=== PATIENT | female | born 1965 | race Hispanic/Latino ===

== ENCOUNTER 2021-09-07 13:36 | Emergency (ER) | payer MEDICAID ==
[2021-09-07] MEDS ORDERED: MAG/ALUM/SIMETH 30 ML UDCUP ONE (13:46)
[2021-09-07] MEDS ORDERED: LIDOCAINE HCL 2% VISCOUS 15 ML UDCUP ONE (13:46)
[2021-09-07] MEDS ORDERED: 0.9%NACL 1000ML 1,000 ML IV ONE (14:00)
[2021-09-07 14:03] LABS: BASOPHILS % (AUTO) 0.5 % (0.0-5.0); EOSINOPHILS % (AUTO) 3.7 % (0.0-8.0); LYMPHOCYTES % (AUTO) 21.3 % (21.0-51.0); MEAN CORPUSCULAR HEMOGLOBIN 30.3 pg (27.0-33.0); MEAN CORPUSCULAR HGB CONC 32.8 g/dL (32.0-36.0); MEAN CORPUSCULAR VOLUME 92.4 fL (79-99); PLATELET COUNT (AUTO) 236 K/uL (130-400); RED BLOOD CELL COUNT(AUTO) 4.33 MIL/uL (4.00-5.50); RED CELL DISTRIBUTION WIDTH 12.3 % (11.0-15.5); WHITE BLOOD COUNT (AUTO) 5.9 K/uL (4.8-10.8)
[2021-09-07 14:13] LABS: CARBON DIOXIDE 27 mmol/L (21-32); CHLORIDE 107 mmol/L (101-111); CREATININE 0.7 mg/dL (0.5-1.5); GLOMERULAR FILTR. RATE CALC 93 mL/min (>60); GLUCOSE,RANDOM 110 mg/dL (70-105); POTASSIUM 3.4 mmol/L (3.5-5.1); SODIUM SERUM 142 mmol/L (136-145); UREA NITROGEN, BLOOD 7 mg/dL (7-18)
[2021-09-07 14:17] LABS: ALANINE AMINOTRANSFERASE 23 U/L (12-78); ALBUMIN 3.1 g/dL (3.5-5.0); ALCOHOL, BLOOD < 3 mg/dL (0-10); ASPARTATE AMINOTRANSFERASE 16 U/L (10-37); BILIRUBIN,TOTAL 0.3 mg/dL (0.2-1.0); CREATINE KINASE, TOTAL 51 U/L (21-232); TOTAL PROTEIN, SERUM 6.7 g/dL (6.0-8.3)
[2021-09-07 14:17] LABS: AMPHET/METH SCREEN,URINE NEGATIVE (NEGATIVE); BARBITURATE SCREEN, URINE NEGATIVE (NEGATIVE); BENZODIAZEPINES SCREEN,URINE NEGATIVE (NEGATIVE); CANNABINOID SCREEN,URINE NEGATIVE (NEGATIVE); COCAINE SCREEN,URINE NEGATIVE (NEGATIVE); OPIATE SCREEN,URINE NEGATIVE (NEGATIVE); PHENCYCLIDINE SCREEN,URINE NEGATIVE (NEGATIVE)
[2021-09-07 14:20] LABS: HCG,QUAL RESULT NEGATIVE (NEGATIVE)
[2021-09-07 15:11] LABS: ACETAMINOPHEN < 1 mcg/mL (10-30); SALICYLATE < 2.8 mg/dL (2.8-20.0)
[2021-09-08] MEDS ORDERED: ZIPRASIDONE MESYLATE 20 MG/VIAL IM ONE (04:31)
[2021-09-08 10:39] VITALS: BP 129/71
== END 2021-09-08 12:09 | disposition short-term general hospital (02) ==
LOC: EDH 13:36
DX: T50.992A Poisoning by other drugs, medicaments and biological substances, intentional self-harm, initial encounter (principal); R45.851 Suicidal ideations; F20.9 Schizophrenia, unspecified; F31.9 Bipolar disorder, unspecified; I10 Essential (primary) hypertension; Z20.822 Contact with and (suspected) exposure to COVID-19; Y92.89 Other specified places as the place of occurrence of the external cause
CPT/HCPCS: 36415; 80053; 80305; 81025; 82550; 85025; 87635; 96360; 96361; 96372; 99285; C9803; G0481; J3486; J7030

== ENCOUNTER 2024-08-23 13:14 | Emergency (ER) | payer MEDICARE ==
[~2024-08-23] VITALS: Ht 160 cm; Wt 65.8 kg
--- NOTE | 2024-08-23 13:41 | EKG ---
[facility] Test Date: 2024-08-23 Test Time: 13:34:21 Pat Name: BRISA BEDOLLA Department: ED Room: Gender: F Out Patient Therapist: [id number] Requested By: DAVIDE REID Order Number: [id number] Reading MD: Gela Castañeda Measurements Intervals [place] Rate: 64 P: 52 CO: 171 QRS: 22 QRSD: 93 T: 37 QT: 429 QTc: 443 Interpretive Statements Sinus rhythm Probable left atrial enlargement No previous ECG available for comparison Electronically Signed On 08-24-2024 15:37:22 KNOBBER by Gela Castañeda Please click the below link to view image of tracing.
--- NOTE | 2024-08-23 13:49 | ERN ---
General Chief Complaint: Halluciations Stated Complaint: HALLUCINATIONS Time Seen by MD: 13:21 History of Present Illness Initial Comments 58-year-old male history of schizophrenia brought in from home by EMS for altered mentation. According to EMS, the family reports that the patient lives on her own. She has a history of schizophrenia. The sister checked on her today and reports that she was acting more paranoid in his possibly manic. She reports that the patient was likely not taking your medications. The patient denies any suicidal or homicidal ideation. She denies any trauma. She denies any drug or alcohol abuse. She does report that she was hearing voices more than usual and is very paranoid. She reports that she would like psychiatric evaluation. Allergies: Coded Allergies: No Known Drug Allergies (Verified Allergy, Unknown, 09/07/21) Past Medical History Past Medical History: Anxiety, Bipolar, Depression, Hypertension Medical History Other: SCHIZOPHRENIA Past Surgical History: Unknown ROS Dictation CONSTITUTIONAL: No chills, no fever, no weakness, no diaphoresis, no malaise. HEAD/FACE: No signs of trauma. EENT: No eye pain, no blurred vision, no tearing, no double vision, no ear pain, no ear discharge, no nose pain, no nasal congestion, no throat pain, no throat swelling, no mouth pain. RESPIRATORY: No cough, no orthopnea, no SOB, no stridor, no wheezing. CARDIOVASCULAR: No chest pain, no edema, no palpitations, no syncope. GASTROINTESTINAL/ABDOMINAL: No abdominal pain, no constipation, no diarrhea, no nausea, no vomiting. GENITOURINARY: No abnormal discharge, no dysuria, no frequent urination, no hematuria. No complaints of pain in the genitals. MUSCULOSKELETAL: No back pain, no gout, no joint pain, no joint swelling, no muscle pain, no muscle stiffness, no neck pain. INTEGUMENTARY: No change in color, no change in hair/nails, no dryness, no lesion, no lumps, no rash. NEUROLOGICAL/PSYCH: No anxiety, not depressed, no emotional problem, no headache, no numbness, no pre-existing deficit, no history of seizures, no tremors, no weakness. HEMATOLOGIC/LYMPHATIC: Not anemic, no history of blood clots, no apparent bleeding, no bruising, glands not swollen. All Systems Negative, Except as Noted. Physical Exam Physical Exam Dictation VITAL SIGNS: Reviewed. GENERAL APPEARANCE: Alert, oriented x3, no acute distress HEAD AND FACE: Non-traumatic. EYES: PERRL, pink conjunctivas, eyelid no trauma, anterior chamber clear. EARS: Pinnas intact and no signs of trauma or erythema. Ear canals clear and no discharge. TMs no erythema. NOSE: No discharge, no bleeding. OROPHARYNX: Mouth normal, teeth no caries, tongue pink. Pharynx clear, no erythema. Tonsils no exudates, no abscesses noted. Mucous membrane moist. NECK: Supple, non-tender, no thyromegaly, no masses, no JVD, no bruits. BREAST: Deferred. CHEST: No tenderness, no crepitus, no paradoxical movement, no retractions. LUNGS: Clear, well-ventilated, symmetric, no rales, no wheezing, no rhonchi, no stridor, good breath sounds bilaterally. HEART: Regular rate, regular rhythm, no murmur, no gallops. VASCULAR: No peripheral edema. ABDOMEN: Soft, positive bowel sounds, nondistended, no guarding, nontender, no rebound, no masses no hepatomegaly, no splenomegaly, no Hayes's sign, no hernias. RECTAL: Deferred. GENITAL: Deferred. NEUROLOGICAL: Normal speech, gross motor function intact, gross sensory function intact. MUSCULOSKELETAL: Neck nontender, full range of motion, back nontender, full range of motion. EXTREMITIES: Nontender, full range of motion. SKIN: Color pink, dry, no turgor, no rash, no lacerations, no abrasions, no contusions. LYMPHATICS: Deferred. Results Laboratory and Microbiology Lab and Micro Result Laboratory Tests Test 08/23/24 13:05 08/23/24 13:47 Urine Color YELLOW (YELLOW) Urine Appearance HAZY (CLEAR) Urine pH 6.0 (5.0-8.0) Urine Specific [place] 1.029 (1.001-1.031) Urine Protein 20 mg/dL (NEGATIVE) H Urine Glucose (UA) NEGATIVE mg/dL (NEGATIVE) Urine Ketones 5 mg/dL (NEGATIVE) H Urine Occult Blood SMALL (NEGATIVE) H Urine Nitrate NEGATIVE (NEGATIVE) Urine Bilirubin NEGATIVE mg/dL (NEGATIVE) Urine Urobilinogen 0.2 mg/dL (0.2-1.0) Urine Leukocyte Esterase 500 Lucio/uL (NEGATIVE) H Urine RBC 51-100 /HPF (0-1) H Urine WBC 51-100 /HPF (0-1) H Urine Squamous Epithelial Cells MANY /HPF (0-2) Urine Bacteria FEW /HPF (None Seen) Urine Opiates Screen NEGATIVE (NEGATIVE) Urine Barbiturates Screen NEGATIVE (NEGATIVE) Urine Phencyclidine Screen NEGATIVE (NEGATIVE) Urine Amphetamines Screen NEGATIVE (NEGATIVE) Urine Benzodiazepines Screen NEGATIVE (NEGATIVE) Urine Cocaine Screen NEGATIVE (NEGATIVE) Urine Marijuana (THC) Screen NEGATIVE (NEGATIVE) White Blood Count 4.9 K/uL (4.8-10.8) Red Blood Count 4.53 MIL/uL (4.00-5.50) Hemoglobin 13.3 g/dL (12.0-16.0) Hematocrit 40.9 % (36-48) Mean Corpuscular Volume 90.3 fL (79-99) Mean Corpuscular Hemoglobin 29.4 pg (27.0-33.0) Mean Corpuscular Hemoglobin Concent 32.5 g/dL (32.0-36.0) Red Cell Distribution Width 12.9 % (11.0-15.5) Platelet Count 212 K/uL (130-400) Mean Platelet Volume 9.5 fL (7.5-10.5) Immature Granulocyte % (Auto) 0.4 % (0-1) Neutrophils (%) (Auto) 53.4 % (40.0-77.0) Lymphocytes (%) (Auto) 34.8 % (21.0-51.0) Monocytes (%) (Auto) 9.2 % (3.0-13.0) Eosinophils (%) (Auto) 1.8 % (0.0-8.0) Basophils (%) (Auto) 0.4 % (0.0-5.0) Neutrophils # (Auto) 2.6 K/uL (1.8-7.7) Lymphocytes # (Auto) 1.7 K/uL (1.0-4.8) Monocytes # (Auto) 0.5 K/uL (0.1-1.0) Eosinophils # (Auto) 0.09 K/uL (0.00-0.70) Basophils # (Auto) 0.02 K/uL (0.00-0.20) Absolute Immature Granulocyte (auto 0.02 K/uL (0-1) Nucleated Red Blood Cells 0.0 % (0.0-0.19) Sodium Level 140 mmol/L (136-145) Potassium Level 3.6 mmol/L (3.5-5.1) Chloride Level 102 mmol/L (101-111) Carbon Dioxide Level 34 mmol/L (21-32) H Blood Urea Nitrogen 15 mg/dL (7-18) Creatinine 0.8 mg/dL (0.5-1.0) Glomerular Filtration Rate Calc 86 mL/min (>90) Random Glucose 128 mg/dL (70-105) H Total Calcium 9.3 mg/dL (8.5-10.1) Total Creatine Kinase 48 U/L (21-232) Salicylates Level < 2.8 mg/dL (2.8-20.0) L Acetaminophen Level < 1 mcg/mL (10-30) L Serum Alcohol < 3 mg/dL (0-10) Labs Reviewed?: Yes MDM CC: Altered mentation Historian: Patient Comorbidities: Schizophrenia Limitations by social determinants of health: None Differential diagnosis: Psychiatric emergency, hallucinations, medical noncompliance, other. Vital signs stable Clinical exam is unremarkable. Cranial nerves are intact. GCS 15. Following all questions appropriately. There was no obvious signs of trauma. No major abnormalities. Lab work ( CBC, BNP, tox screen) is normal per my independent interpretation. EKG: Sinus rhythm, rate 64, normal axis, good R-wave progression, intervals stable. No STEMI. Independently interpreted by me. This patient's symptoms most consistent with the psychiatric complication. We will contact [facility] for further treatment and evaluation. PATIENT WAS EVALUATED BY [facility]ENTAL [facility]ALTH FACILITY AND PATIENT DOES NOT MEET CRITERIA FOR ADMISSION. PLAN WOULD BE FOR OUTPATIENT TREATMENT. PATIENT WILL BE DISCHARGED IN STABLE CONDITION WITH A DIAGNOSIS. PATIENT DOES HAVE EXTENSIVE HISTORY OF PSYCHIATRIC ILLNESS. PATIENT WILL BE DISCHARGED TO FAMILY MEMBERS. ED Course Orders Procedure Category Date Status Time Cbc With Differential LAB 08/23/24 Complete 13:26 Alcohol, Blood LAB 08/23/24 Complete 13:26 Salicylate LAB 08/23/24 Complete 13:26 Acetaminophen LAB 08/23/24 Complete 13:26 Urinalysis Profile LAB 08/23/24 Complete 13:26 Chest 1vw RAD 08/23/24 Resulted 13:26 12 Lead Ekg Tracing- EKG 08/23/24 Resulted Technical 13:26 Creatine Kinase, Total LAB 08/23/24 Complete 13:26 Basic Metabolic Panel LAB 08/23/24 Complete 13:26 Drug Screen Urine LAB 08/23/24 Complete 13:26 Culture Urine [place] 08/23/24 In Process 14:39 Vital Signs Date Time Temp Pulse Resp B/P (MAP) Pulse Ox O2 Delivery O2 Flow Rate FiO2 08/24/24 11:02 97.9 74 16 124/69 97 Room Air* 0 08/24/24 07:10 97.9 66 20 109/73 97 Room Air* 0 08/24/24 06:03 97.3 65 16 122/64 97 Room Air* 0 08/24/24 02:24 97.3 68 16 124/68 97 Room Air* 0 08/23/24 23:43 72 20 121/63 96 Room Air* 0 08/23/24 22:00 76 18 118/69 95 Room Air* 0 08/23/24 19:34 97.9 78 18 114/62 97 Room Air* 0 08/23/24 18:01 71 20 119/68 97 Room Air* 0 08/23/24 16:54 98.1 76 18 118/63 97 Room Air* 0 08/23/24 15:35 98.1 72 20 121/70 97 Room Air* 0 08/23/24 13:29 98.2 69 18 119/75 97 Room Air* 0 08/23/24 13:20 98.2 69 18 119/75 Room Air 0 DX & DISP Disposition: Discharge Departure Impression: Primary Impression: Hallucination Additional Impression: Schizophrenia Condition: Stable Referrals: TORREY SAN MD (PCP) Time of Disposition: 11:03 DAVIDE REID DO Aug 23, 2024 13:49 FRANCES VINES MD Aug 24, 2024 11:03
[2024-08-23 13:54] LABS: BASOPHILS # (AUTO) 0.02 K/uL (0.00-0.20); BASOPHILS % (AUTO) 0.4 % (0.0-5.0); EOSINOPHILS # (AUTO) 0.09 K/uL (0.00-0.70); EOSINOPHILS % (AUTO) 1.8 % (0.0-8.0); HEMATOCRIT 40.9 % (36-48); IMMATURE GRANULOCYTE ABSOLUTE 0.02 K/uL (0-1); LYMPHOCYTES # (AUTO) 1.7 K/uL (1.0-4.8); LYMPHOCYTES % (AUTO) 34.8 % (21.0-51.0); MEAN CORPUSCULAR HEMOGLOBIN 29.4 pg (27.0-33.0); MEAN CORPUSCULAR HGB CONC 32.5 g/dL (32.0-36.0); MEAN CORPUSCULAR VOLUME 90.3 fL (79-99); MONOCYTES # (AUTO) 0.5 K/uL (0.1-1.0); MONOCYTES % (AUTO) 9.2 % (3.0-13.0); NEUTROPHILS # (AUTO) 2.6 K/uL (1.8-7.7); NEUTROPHILS % (AUTO) 53.4 % (40.0-77.0); PLATELET COUNT (AUTO) 212 K/uL (130-400); RED BLOOD CELL COUNT(AUTO) 4.53 MIL/uL (4.00-5.50); RED CELL DISTRIBUTION WIDTH 12.9 % (11.0-15.5); WHITE BLOOD COUNT (AUTO) 4.9 K/uL (4.8-10.8)
[2024-08-23 14:04] LABS: CARBON DIOXIDE 34 mmol/L (21-32); CHLORIDE 102 mmol/L (101-111); CREATININE 0.8 mg/dL (0.5-1.0); GLOMERULAR FILTR. RATE CALC 86 mL/min (>90); GLUCOSE,RANDOM 128 mg/dL (70-105); POTASSIUM 3.6 mmol/L (3.5-5.1); SODIUM SERUM 140 mmol/L (136-145); UREA NITROGEN, BLOOD 15 mg/dL (7-18)
[2024-08-23 14:09] LABS: ACETAMINOPHEN < 1 mcg/mL (10-30); ALCOHOL, BLOOD < 3 mg/dL (0-10); CREATINE KINASE, TOTAL 48 U/L (21-232); SALICYLATE < 2.8 mg/dL (2.8-20.0)
[2024-08-23 14:38] LABS: ADD UA MICROSCOPIC YES; APPEARANCE,URINE HAZY (CLEAR); BILIRUBIN,URINE NEGATIVE (NEGATIVE); COLOR,URINE YELLOW (YELLOW); GLUCOSE, URINE (UA) NEGATIVE (NEGATIVE); KETONES,URINE 5 mg/dL (NEGATIVE); LEUKOCYTE ESTERASE ,URINE 500 Leu/uL (NEGATIVE); NITRATE,URINE NEGATIVE (NEGATIVE); OCCULT BLOOD,URINE SMALL (NEGATIVE); PROTEIN,URINE 20 mg/dL (NEGATIVE); UROBILINOGEN,URINE 0.2 mg/dL (0.2-1.0)
[2024-08-23 14:41] LABS: BACTERIA,URINE FEW /HPF (None Seen); MUCUS,URINE RARE LPF (None Seen); RBC,URINE 51-100 /HPF (0-1); SQUAMOUS EPITHELIAL CELL,UR MANY /HPF (0-2); WBC,URINE 51-100 /HPF (0-1)
[2024-08-23 14:46] LABS: AMPHET/METH SCREEN,URINE NEGATIVE (NEGATIVE); BARBITURATE SCREEN, URINE NEGATIVE (NEGATIVE); BENZODIAZEPINES SCREEN,URINE NEGATIVE (NEGATIVE); CANNABINOID SCREEN,URINE NEGATIVE (NEGATIVE); COCAINE SCREEN,URINE NEGATIVE (NEGATIVE); OPIATE SCREEN,URINE NEGATIVE (NEGATIVE); PHENCYCLIDINE SCREEN,URINE NEGATIVE (NEGATIVE)
--- NOTE | 2024-08-23 14:59 | NUR ---
[facility] CONTACTED AT THIS TIME TO HAVE PATIENT EVALUATED.
--- NOTE | 2024-08-23 15:05 | HMCIMG ---
PORTABLE CHEST RADIOGRAPH INDICATION: screen; hallucinations COMPARISON: None FINDINGS: Heart size is normal. The pulmonary vascularity and sylwia appear normal. Bibasilar lung linear opacities without consolidation. No significant pleural effusion noted. No pneumothorax detected. IMPRESSION: Minimal bibasilar atelectasis.
--- NOTE | 2024-08-23 15:38 | NUR ---
SPOKE WITH [facility] AND WAS ADVISED THAT SHE WILL BE HERE IN ABOUT 2 HOURS.
--- NOTE | 2024-08-23 16:45 | NUR ---
PATIENT BROTHER RALPH MICKEY [phone] PATIENT SISTER IN LAW LEO MICKEY [phone]
--- NOTE | 2024-08-23 19:32 | NUR ---
SCREENER ADVISED THAT PATIENT WAS UNABLE TO REMIAN AWAKE FOR EXAM. THEY WOULD COME TO REASSESS IN THE MORNING. PATIENT'S FAMILY CONTACTED BUT NO ANSWER.
--- NOTE | 2024-08-23 20:14 | NUR ---
BROTHER RALPH AREVALO UPDATED ON PATIENT STATUS AT THIS TIME.
--- NOTE | 2024-08-24 03:30 | NUR ---
PATIENT STATED SHE HEARS HER DAUGHTER SPEAKING TO HER, WANTS TO KNOW WHERE HER DAUGHTER IS. RE ORIENTED PATIENT TO ER AND DAUGHTERS ABSENCE FROM ER. PATIENT THEN ASKING IF STAFF ARE GOSSIPING ABOUT HER, ASSURED PATIENT THAT STAFF ARE NOT DISCUSSING PATIENT, ENCOURAGED PATIENT TO TRY TO RELAX AND GET SOME SLEEP, WARM BLANKET PROVIDED, PATIENT RESTING QUIETLY.
--- NOTE | 2024-08-24 07:11 | NUR ---
TO BE EVALUATED BY [facility] SCRE[facility] TODAY AT 0800. PATIENT IS AGITATED, PACING AND STATING "YOU ALL ARE BRAINWASHED BY MY SISTER." VOICING WANTS TO WALK OUT OF ER. PATIENT RE ORIENTED TO PERSON PLACE TIME AND SITUATION. DENIES SUICIDAL HOMICIDAL IDEATION.
--- NOTE | 2024-08-24 07:28 | NUR ---
PATIENT SNACKING AT THIS TIME
--- NOTE | 2024-08-24 08:47 | NUR ---
[facility] CONTACTED FOR ETA ON SCREENER
--- NOTE | 2024-08-24 08:53 | NUR ---
PATIENT RESTING COMFORTABLY. CALM AND COOPERATIVE. NO SIGNS OR SYMPTOMS OF ACUTE DISTRESS. WILL CONTINUE TO MONITOR.
--- NOTE | 2024-08-24 09:35 | NUR ---
SCREENER AT BEDSIDE
--- NOTE | 2024-08-24 10:56 | NUR ---
PER SCREENER, DOES NOT MEET CRITERIA FOR PLACEMENT
--- NOTE | 2024-08-24 10:59 | NUR ---
PATIENT'S BROTHER ON WAY TO PROVIDE TRANSPORT HOME
[2024-08-24 11:02] VITALS: BP 124/69; PULSE 74; RESP 16; TEMP 97.9; O2SAT 97
--- NOTE | 2024-08-24 12:15 | NUR ---
PATIENT'S BROTHER HERE TO TAKE PATIENT HOME. VERBAL AND WRITTEN INSTRUCTIONS PROVIDED. NO VOICED CONCNERNS BY FAMILY.
== END 2024-08-24 12:15 | disposition home or self-care (01) ==
LOC: EDH 13:14
DX: R44.3 Hallucinations, unspecified (principal); F31.9 Bipolar disorder, unspecified; I10 Essential (primary) hypertension
CPT/HCPCS: 99285; 71045; 82550; 80048; 80305; 85025; 87086; 36415; 93005; 81001; G0481

== ENCOUNTER 2025-01-10 21:49 | Emergency (ER) | payer MEDICARE, MEDICAID ==
[~2025-01-10] VITALS: Ht 160 cm; Wt 79.6 kg
--- NOTE | 2025-01-10 21:52 | NUR ---
UA CUP PROVIDED
[2025-01-10 22:30] LABS: IMMATURE GRANULOCYTE ABSOLUTE 0.01 K/uL (0-1); NUCLEATED RED BLOOD CELLS 0.0 % (0.0-0.19); PLATELET COUNT (AUTO) 321 K/uL (130-400); RED BLOOD CELL COUNT(AUTO) 4.99 MIL/uL (4.00-5.50); RED CELL DISTRIBUTION WIDTH 12.3 % (11.0-15.5); WHITE BLOOD COUNT (AUTO) 8.4 K/uL (4.8-10.8)
[2025-01-10 22:47] LABS: CREATININE 0.8 mg/dL (0.5-1.0); GLOMERULAR FILTR. RATE CALC 86.0 mL/min (>90); GLUCOSE,RANDOM 105.0 mg/dL (70-105); SODIUM SERUM 141.0 mmol/L (136-145); UREA NITROGEN, BLOOD 17.0 mg/dL (7-18)
[2025-01-10 22:51] LABS: ASPARTATE AMINOTRANSFERASE 49.0 U/L (10-37); CREATINE KINASE, TOTAL 234.0 U/L (21-232); TOTAL PROTEIN, SERUM 8.1 g/dL (6.0-8.3)
--- NOTE | 2025-01-10 22:54 | HMCIMG ---
EXAM: US for Deep Venous Thrombosis, bilateral Lower Extremity. CLINICAL HISTORY: Leg Pain and Swelling TECHNIQUE: Real-time ultrasound scan of the veins of the bilateral lower extremity with color Doppler flow, spectral waveform analysis and compression. COMPARISON: None provided. FINDINGS: DEEP VEINS: The common femoral, superficial femoral, and popliteal veins are echolucent and compressible. There is normal color Doppler flow throughout. The visualized calf veins appear patent. SOFT TISSUES: No popliteal fossa cyst or other abnormalities. IMPRESSION: No deep venous thrombosis evident on bilateral lower extremity examination. /[place]
[2025-01-10 23:12] LABS: APPEARANCE,URINE CLEAR (CLEAR); GLUCOSE, URINE (UA) NEGATIVE (NEGATIVE); LEUKOCYTE ESTERASE ,URINE NEGATIVE Leu/uL (NEGATIVE); NITRATE,URINE NEGATIVE (NEGATIVE); OCCULT BLOOD,URINE +- (TRACE) (NEGATIVE)
[2025-01-10 23:13] LABS: ADD UA MICROSCOPIC YES
[2025-01-10 23:15] LABS: SQUAMOUS EPITHELIAL CELL,UR RARE /HPF (0-2)
--- NOTE | 2025-01-10 23:55 | ERN ---
ED Note History of Present Illness Stated Complaint: BILATERAL UPPER AND LOWER SWELLING, NUMBNESS Chief Complaint: LOWER EXTREMITY EDEMA Time Seen by MD: 22:09 Time Seen by Midlevel: 22:09 Dictation: The patient is a 59-year-old female with a history of hyperlipidemia, hypertension, gallstones who presents to the emergency department with complaints of bilateral lower extremity swelling, bilateral hand swelling and discomfort onset two months ago. Patient reports she has been seen by her primary doctor and told her that everything was fine. Patient also reported that she has a history of gallstones and she is following up with her doctor but is unsure what they are going to do about it. Patient denies any abdominal pain at this time. Denies any chest pain or shortness of breath. Denies any fevers, denies nausea vomiting or diarrhea, or constipation. Patient denies any short ness of breath. Denies any other complaints. Allergies: Coded Allergies: No Known Drug Allergies (Verified Allergy, Unknown, 09/07/21) Past Medical History Past Medical History: Anxiety, Bipolar, Depression, Hypertension, Kidney Stone Additional Past Medical Hx: SCHIZOPHRENIA, FATTY LIVER, GALLSTONES Surgical History: Hysterectomy RN Note Reviewed/Agreed w/PFSH: Yes Review of System Dictation Constitutional: Negative for fever,chills, and weight loss Eyes: Negative for injury, pain,redness, and discharge ENT: Negative for injury,pain or swelling Cardiovascular: Negative for chest pain, palpitations, and edema Respiratory: Negative for shortness of breath, cough, and wheezing, Abdomen/GI: Negative for abdominal pain, nausea, vomiting, diarrhea, and constipation Back: Negative for injury and pain : Negative for injury, bleeding and discharge MS/Extremity: Negative for injury and deformity positive for bilateral lower extremity swelling, hand swelling Skin: Negative for rash, and discoloration Neuro: Negative for headache, weakness, numbness, tingling, and seizure Psych: Negative for suicide ideation, homicidal ideation, and hallucinations Initial Vital Sign VS Vital Signs Date Time Temp Pulse Resp B/P (MAP) Pulse Ox O2 Delivery O2 Flow Rate FiO2 01/10/25 21:50 97.7 77 19 156/88 98 Room Air 01/10/25 22:42 0 21 Physical Exam Dictation Vital Signs reviewed General Appearance: Alert, oriented x 3, no acute distress, well developed, nourished. Head and Face: non-traumatic. Eyes: PERRL, pink conjunctivas, eyelid no trauma, anterior chamber with arcus senilis. Ears: Pinnas intact and no signs of trauma or erythema ear canals clear and no discharge TM no erythema Nose: No discharge, no bleeding. Oropharynx: Mouth normal, tongue pink. pharynx clear,no erythema, tonsils no exudates, no abscesses noted, mucous membrane moist Neck: Supple, non-tender, no thyromegaly, no masses, no JVD, no bruits Breast:Deferred Chest:No tenderness, no crepitus, no paradoxical movement, no retractions Lungs:Clear, well-ventilated, symmetric, no rales, no wheezing, no rhonchi, no stridor, good breath sounds bilaterally Heart: Regular rate, regular rhythm, no murmur, no gallops Vascular: no peripheral edema, dorsalis pedis 3+ bilaterally, radial pulses 3+ bilaterally Abdomen: Soft, positive bowel sounds, nondistended, no guarding, nontender, no rebound, no masses no hepatomegaly, no splenomegaly, no Hayes's sign, no hernias. Rectal: Deferred Genital: Deferred Neurological: Normal speech, motor function intact, sensory function intact Musculoskeletal: Neck nontender, full range of motion, back nontender, full range of motion, Extremities: nontender, full range of motion Skin: Color pink, dry, no turgor, no rash, no lacerations, no abrasions, no contusions. Lymphatic: Deferred Results (Laboratory/Radiology) Laboratory/Radiology Laboratory Tests Test 01/10/25 22:24 01/10/25 22:42 White Blood Count 8.4 K/uL (4.8-10.8) Red Blood Count 4.99 MIL/uL (4.00-5.50) Hemoglobin 14.2 g/dL (12.0-16.0) Hematocrit 42.0 % (36-48) Mean Corpuscular Volume 84.2 fL (79-99) Mean Corpuscular Hemoglobin 28.5 pg (27.0-33.0) Mean Corpuscular Hemoglobin Concent 33.8 g/dL (32.0-36.0) Red Cell Distribution Width 12.3 % (11.0-15.5) Platelet Count 321 K/uL (130-400) Mean Platelet Volume 9.1 fL (7.5-10.5) Immature Granulocyte % (Auto) 0.1 % (0-1) Neutrophils (%) (Auto) 49.2 % (40.0-77.0) Lymphocytes (%) (Auto) 37.3 % (21.0-51.0) Monocytes (%) (Auto) 10.2 % (3.0-13.0) Eosinophils (%) (Auto) 2.4 % (0.0-8.0) Basophils (%) (Auto) 0.8 % (0.0-5.0) Neutrophils # (Auto) 4.1 K/uL (1.8-7.7) Lymphocytes # (Auto) 3.1 K/uL (1.0-4.8) Monocytes # (Auto) 0.9 K/uL (0.1-1.0) Eosinophils # (Auto) 0.20 K/uL (0.00-0.70) Basophils # (Auto) 0.07 K/uL (0.00-0.20) Absolute Immature Granulocyte (auto 0.01 K/uL (0-1) Nucleated Red Blood Cells 0.0 % (0.0-0.19) Sodium Level 141 mmol/L (136-145) Potassium Level 3.9 mmol/L (3.5-5.1) Chloride Level 104 mmol/L (101-111) Carbon Dioxide Level 29 mmol/L (21-32) Blood Urea Nitrogen 17 mg/dL (7-18) Creatinine 0.8 mg/dL (0.5-1.0) Glomerular Filtration Rate Calc 86 mL/min (>90) Random Glucose 105 mg/dL (70-105) Total Calcium 9.9 mg/dL (8.5-10.1) Total Bilirubin 0.4 mg/dL (0.2-1.0) Aspartate Amino Transf (AST/SGOT) 49 U/L (10-37) H Alanine Aminotransferase (ALT/SGPT) 85 U/L (12-78) H Alkaline Phosphatase 198 U/L (50-136) H Total Creatine Kinase 234 U/L (21-232) #H B-Type Natriuretic Peptide 8 pg/mL (0-100) Total Protein 8.1 g/dL (6.0-8.3) Albumin 3.8 g/dL (3.5-5.0) Urine Color LIGHT-YELLOW (YELLOW) Urine Appearance CLEAR (CLEAR) Urine pH 5.5 (5.0-8.0) Urine Specific [place] 1.020 (1.001-1.031) Urine Protein NEGATIVE mg/dL (NEGATIVE) Urine Glucose (UA) NEGATIVE mg/dL (NEGATIVE) Urine Ketones NEGATIVE mg/dL (NEGATIVE) Urine Occult Blood +- (TRACE) (NEGATIVE) H Urine Nitrate NEGATIVE (NEGATIVE) Urine Bilirubin NEGATIVE mg/dL (NEGATIVE) Urine Urobilinogen 0.2 mg/dL (0.2-1.0) Urine Leukocyte Esterase NEGATIVE Lucio/uL Urine RBC 0-1 /HPF (0-1) Urine WBC 0-1 /HPF (0-1) Urine Squamous Epithelial Cells RARE /HPF (0-2) Urine Bacteria None /HPF (None Seen) Labs Reviewed?: Yes ED Course ED Course Orders Procedure Category Date Status Time Cbc With Differential LAB 01/10/25 Complete 22:17 Comprehensive LAB 01/10/25 Complete Metabolic Panel 22:17 Urinalysis Profile LAB 01/10/25 Complete 22:17 Creatine Kinase, Total LAB 01/10/25 Complete 22:17 Us Venous Doppler US 01/10/25 Resulted Bilateral 22:17 B-Type Natriuretic LAB 01/10/25 Complete Peptide 22:17 Vital Signs Date Time Temp Pulse Resp B/P (MAP) Pulse Ox O2 Delivery O2 Flow Rate FiO2 01/10/25 22:42 75 19 141/82 99 Room Air* 0 21 01/10/25 21:50 97.7 77 19 156/88 98 Room Air Medical Decision Making MDM The patient is a 59-year-old female with a history of hyperlipidemia, hypertension, gallstones who presents to the emergency department with complaints of bilateral lower extremity swelling, bilateral hand swelling and discomfort onset two months ago. Patient reports she has been seen by her primary doctor and told her that everything was fine. Patient also reported that she has a history of gallstones and she is following up with her doctor but is unsure what they are going to do about it. Patient denies any abdominal pain at this time. Denies any chest pain or shortness of breath. Denies any fevers, denies nausea vomiting or diarrhea, or constipation. Patient denies any shortness of breath. Denies any other complaints. CBC showed no leukocytosis, no anemia, chemistry showed mild elevated CK, normal renal function, slightly elevated liver enzymes. Negative BNP. Ultrasound revealed no DVT. Patient denies any abdominal pain, chest pain or shortness of breath. On physical exam patient is in no acute distress, no significant swelling noted to bilateral lower legs, no significant swelling noted to upper extremities. Patient with good pulses on all extremities. Neurovascularly intact. Patient with stable vital signs. Patient has been having these symptoms for over two months. Patient instructed to continue follow up with her PCP. Differential diagnosis: DVT, CHF, electrolyte imbalance, dehydration, acute kidney injury, Need for hospitalization: Patient does not meet criteria for hospitalization. There are no social concerns with this patient. DX & DISP Disposition: Discharge Departure Impression: Primary Impression: Swelling of both lower extremities Condition: Stable Additional Instructions: Please follow up with your primary doctor in 1-2 days. You can elevate your legs to help with the swelling. If symptoms worsen please return to ER. FOLLOW-UP WITH PRIMARY CARE PROVIDER IN 1 TO 2 DAYS. TAKE MEDICATIONS DIRECTED HERE IN THE EMERGENCY ROOM. OKAY TO CONTINUE HOME MEDICATIONS UNLESS OTHERWISE DISCUSSED DURING YOUR VISIT IN THE EMERGENCY ROOM TODAY. RETURN TO YOUR NEAREST EMERGENCY ROOM IF SYMPTOMS WORSEN OR IF THERE IS NO IMPROVEMENT. CALL 911 IF YOU NEED IMMEDIATE ASSISTANCE. TAKE TYLENOL [id number] NEEDED AND IF NO CONTRAINDICATIONS ARE PRESENT. INCREASE ORAL HYDRATION. A WOUND CULTURE OR URINE CULTURE WAS ORDERED HERE IN THE EMERGENCY ROOM DEPARTMENT PLEASE FOLLOW-UP WITH PRIMARY CARE PROVIDER AND ADVISE THEM TO GET REPEAT PORTS FROM OUR FACILITY. IF YOU HAD ANY JORDAN WRAP/SPLINTS THAT WERE APPLIED HERE, PLEASE DO NOT REMOVE THEM UNTIL YOU SEE YOUR PRIMARY CARE OR SPECIALTY. Referrals: SELF,REFERRAL (PCP) Time of Disposition: 23:54 I have reviewed the case, and I agree with, Diagnosis and Plan [facility] Jan 10, 2025 23:55
[2025-01-11 00:03] VITALS: BP 141/91; PULSE 68; RESP 19; TEMP 98.7; O2SAT 99
== END 2025-01-11 00:14 | disposition home or self-care (01) ==
LOC: EDH 21:49
DX: R22.43 Localized swelling, mass and lump, lower limb, bilateral (principal); F20.9 Schizophrenia, unspecified; F31.9 Bipolar disorder, unspecified; I10 Essential (primary) hypertension; Z87.442 Personal history of urinary calculi; Z90.710 Acquired absence of both cervix and uterus
CPT/HCPCS: 36415; 80053; 81001; 82550; 83880; 85025; 93970; 99284

== ENCOUNTER 2025-02-15 21:19 | Emergency (ER) | payer MEDICARE, MEDICAID ==
[~2025-02-15] VITALS: Ht 165.1 cm; Wt 72.6 kg
[2025-02-15 21:53] LABS: PLATELET COUNT (AUTO) 257 K/uL (130-400); RED BLOOD CELL COUNT(AUTO) 4.87 MIL/uL (4.00-5.50); RED CELL DISTRIBUTION WIDTH 12.9 % (11.0-15.5); WHITE BLOOD COUNT (AUTO) 7.0 K/uL (4.8-10.8)
[2025-02-15 21:54] LABS: IMMATURE GRANULOCYTE ABSOLUTE 0.01 K/uL (0-1); NUCLEATED RED BLOOD CELLS 0.0 % (0.0-0.19)
[2025-02-15 22:18] LABS: CREATININE 0.9 mg/dL (0.5-1.0); GLOMERULAR FILTR. RATE CALC 75.0 mL/min (>90); GLUCOSE,RANDOM 99.0 mg/dL (70-105); SODIUM SERUM 140.0 mmol/L (136-145); UREA NITROGEN, BLOOD 12.0 mg/dL (7-18)
--- NOTE | 2025-02-15 22:23 | ERN ---
ED Note History of Present Illness Stated Complaint: ELEVATED BP, HEAD PRESSURE ONSET 1200 Chief Complaint: Hypertension Time Seen by MD: 21:26 Dictation: This is a 59-year-old female who presented to the emergency room complaining of a head pressure and elevated blood pressure. Apparently this started around 12 when she began with diffuse heavy Head and a headache which is all over and she took [id number] pain killer without much relief. She also reported that she had episode of epistaxis. She has never been on any blood pressure medications before or formally diagnosed. No sinus drainage fever chills rigors. No chest pain pressure PND orthopnea. Temperature 98.4 pulse 79 respirations 16 blood pressure 168/98 with a pulse oximetry of 98% on room air Her chronic medical problems include history of a hemorrhagic CVA, fatty liver nephrolithiasis and cholelithiasis. Psychiatric history significant for anxiety, bipolar depression and schizophrenia Allergies: Coded Allergies: No Known Drug Allergies (Verified Allergy, Unknown, 09/07/21) Past Medical History Past Medical History: Anxiety, Bipolar, CVA, Depression, Hypertension, Kidney Stone, Schizophrenia Additional Past Medical Hx: FATTY LIVER, GALLSTONES Surgical History: Hysterectomy Family History: Negative History: Not Applicable RN Note Reviewed/Agreed w/PFSH: Yes Review of System Dictation Constitutional: Negative for fever,chills, and weight loss Eyes: Negative for injury, pain,redness, and discharge ENT: Negative for injury,pain or swelling Cardiovascular: Negative for chest pain, palpitations, and edema Respiratory: Negative for shortness of breath, cough, and wheezing, Abdomen/GI: Negative for abdominal pain, nausea, vomiting, diarrhea, and co nstipation Back: Negative for injury and pain : Negative for injury, bleeding and discharge MS/Extremity: Negative for injury and deformity Skin: Negative for rash, and discoloration Neuro: Positive for headache, weakness, numbness, tingling, and seizure Psych: Negative for suicide ideation, homicidal ideation, and hallucinations Initial Vital Sign VS Vital Signs Date Time Temp Pulse Resp B/P (MAP) Pulse Ox O2 Delivery O2 Flow Rate FiO2 02/15/25 21:20 98.4 79 16 168/98 98 Room Air 0 02/15/25 21:25 21 Physical Exam Dictation General: awake, alert, NAD Head/Face: Normocephalic, atraumatic Eyes: PERRL, EOMI, vision at baseline ENT: oral cavity clear, TMs clear, no signs of infection Neck: Trachea midline, supple, no nuchal rigidity Cardiovascular: RRR, normal S1/S2, No MRGs, no JVD Respiratory: CTAB, no respiratory distress, No rales or wheezes Abdomen: Soft, non-tender, non-distended, normal bowel sounds, no guarding or rebound. Skin: Warm, dry, normal turgor, no rash MS/Extremity: Pulses equal, no cyanosis, neurovascular intact, FROM Neuro: COAx4, GCS 15, strength 5/5, CN 2-12 intact, normal cerebellar exam, normal gait, Psych: Normal behavior, mood, and affect normal Extremities-trace edema without any palpable cords, Homans sign is negative Results (Laboratory/Radiology) Laboratory/Radiology Laboratory Tests Test 02/15/25 21:44 White Blood Count 7.0 K/uL (4.8-10.8) Red Blood Count 4.87 MIL/uL (4.00-5.50) Hemoglobin 13.5 g/dL (12.0-16.0) Hematocrit 40.9 % (36-48) Mean Corpuscular Volume 84.0 fL (79-99) Mean Corpuscular Hemoglobin 27.7 pg (27.0-33.0) Mean Corpuscular Hemoglobin Concent 33.0 g/dL (32.0-36.0) Red Cell Distribution Width 12.9 % (11.0-15.5) Platelet Count 257 K/uL (130-400) Mean Platelet Volume 9.6 fL (7.5-10.5) Immature Granulocyte % (Auto) 0.1 % (0-1) Neutrophils (%) (Auto) 46.6 % (40.0-77.0) Lymphocytes (%) (Auto) 38.9 % (21.0-51.0) Monocytes (%) (Auto) 11.3 % (3.0-13.0) Eosinophils (%) (Auto) 2.4 % (0.0-8.0) Basophils (%) (Auto) 0.7 % (0.0-5.0) Neutrophils # (Auto) 3.3 K/uL (1.8-7.7) Lymphocytes # (Auto) 2.7 K/uL (1.0-4.8) Monocytes # (Auto) 0.8 K/uL (0.1-1.0) Eosinophils # (Auto) 0.17 K/uL (0.00-0.70) Basophils # (Auto) 0.05 K/uL (0.00-0.20) Absolute Immature Granulocyte (auto 0.01 K/uL (0-1) Nucleated Red Blood Cells 0.0 % (0.0-0.19) Sodium Level 140 mmol/L (136-145) Potassium Level 3.7 mmol/L (3.5-5.1) Chloride Level 105 mmol/L (101-111) Carbon Dioxide Level 28 mmol/L (21-32) Blood Urea Nitrogen 12 mg/dL (7-18) Creatinine 0.9 mg/dL (0.5-1.0) Glomerular Filtration Rate Calc 75 mL/min (>90) Random Glucose 99 mg/dL (70-105) Total Calcium 9.1 mg/dL (8.5-10.1) Troponin I High Sensitivity 6 ng/L (4-50) Labs Reviewed?: Yes EKG Comment: Twelve lead EKG done on 02/15/2025 at 9:24 p.m. showed a heart rate of 76, OR interval 170, QRS duration 90, QT/QTC 383/431. Impression normal sinus rhythm with no acute STT wave changes. EKG rhythm strip also shows a normal sinus rhythm with no acute STT wave changes. Interpreted by ER MD Dr. Diaz ED Course ED Course Orders Procedure Category Date Status Time Cbc With Differential LAB 02/15/25 Complete 21:34 Chest 1vw RAD 02/15/25 Resulted 21:34 12 Lead Ekg Tracing- EKG 02/15/25 Logged Technical 21:34 Troponin I High LAB 02/15/25 Complete Sensitivity 21:34 Basic Metabolic Panel LAB 02/15/25 Complete 21:34 Hydralazine 20mg Inj PHA 02/15/25 Complete (Apresoline 20mg In 22:30 Ketorolac PHA 02/15/25 Complete Tromethamine 30mg/Ml 22:30 Current Medications Medications (Trade) Dose Ordered Sig/Sivakumar Route PRN Reason Start Time Stop Time Status Last Admin Dose Admin Hydralazine HCl (APRESOLine 20MG INJ) 10 mg ONCE ONCE IM 02/15/25 22:30 02/15/25 22:31 DC 02/15/25 22:36 Ketorolac Tromethamine (toRADol) 30 mg ONCE ONCE IM 02/15/25 22:30 02/15/25 22:31 DC 02/15/25 22:36 Vital Signs Date Time Temp Pulse Resp B/P (MAP) Pulse Ox O2 Delivery O2 Flow Rate FiO2 02/15/25 22:46 98.4 77 19 138/79 98 Room Air* 0 21 02/15/25 22:30 98.2 74 18 157/95 98 Room Air* 0 21 02/15/25 21:25 99.0 78 17 145/91 97 Room Air* 0 21 02/15/25 21:20 98.4 79 16 168/98 98 Room Air 0 We will perform diagnostic labs, advanced imaging and administer medications according to the patient's complaint. Once the results are available, will review and personally interpreted the labs to rule out any acute life- threatening emergency the trach require immediate intervention and treatment. I will then re-evaluate the patient after treatment and diagnostic exams have return to determine whether the patient requires any further testing, can safely be discharged home or need further admission to hospital for additional treatment and evaluation. 10:20 p.m. CBC is with a normal limits BNP 7 is with a normal limits Chest x-ray shows mild interstitial prominence but no focal infiltrate. 10:27 p.m. a dose of hydralazine and Toradol for the headache. I recommended to the patient to get established with a primary care physician and monitor the blood pressure for a week to see if she needs to be started on antihypertensives by her primary care physician. Medical Decision Making MDM Differential diagnosis: Vascular headache, migraine, partial hemicrania, cluster headache, tension headache Rationale: Tests considered and ordered secondary to shared decision making include: Previous outside records reviewed: Old ER visits. Risk of complication and/or morbidity or mortality of patient management: None Medications-Per medication reconciliation Need for hospitalization: Patient does not meet criteria for hospitalization. Need for emergency major/minor surgery: No There are no social concerns with this patient. Prescription drug management Prescriptions will include symptomatic care Patient's prior external medical records from other ER visits were reviewed by me as indicated. Prior testing and results from previous visits were reviewed. Prior tests were taken into account with medical decision making and resource utilization, independent historian/historians were used to obtain complete medical history. I independently interpreted the test that were performed, results were reviewed by me and considered findings on radiology if ordered. Medical management and examination interpretation discussions were had by me with other qualified healthcare professionals as indicated for the patient's care. Problem List Problem List: (1) Uncontrolled hypertension (2) Headache (3) Schizophrenia DX & DISP Disposition: Discharge Departure Impression: Primary Impression: Uncontrolled hypertension Additional Impressions: Headache, Swelling of both lower extremities Condition: Stable Additional Instructions: Patient and the caregiver have been informed of all the diagnostic tests and the imaging conducted during the today's visit to the emergency room and has verbalized understanding of the results I have personally reviewed and interpreted all diagnostic exams performed here in the ER today as well as the vital signs documented by the nursing staff. The patient is now being discharged to home and should follow up with the primary care physician or the specialist as directed by the ER staff. Follow-up with primary care provider in 1 to 2 days. Take medications as directed here in the emergency room. Okay to continue home medications unless otherwise discussed during your visit in the emergency room today. Return to your nearest emergency room if symptoms worsen or if there is no improvement. Call 911 if you need immediate assistance. Take Tylenol or Motrin [id number] as needed and if no contraindications are present. Increase oral hydration. A wound culture or urine culture was ordered here in the emergency room department please follow-up with primary care provider and advise them to get repeat ports from our facility. If you had any Miguel wrap/splints that were applied here, please do not remove them until you see your primary care or specialty. Referrals: SELF,REFERRAL (PCP) JORDYN DIAZ MD Feb 15, 2025 22:22
--- NOTE | 2025-02-15 22:56 | HMCIMG ---
EXAM: CR Chest, 1 view CLINICAL HISTORY: Hypertension. COMPARISON: Chest radiograph dated 08/23/2024. FINDINGS: The lungs show no infiltrates or other acute findings. No pleural effusion or pneumothorax. The cardiomediastinal silhouette is within normal limits. No acute osseous abnormality. IMPRESSION: No acute cardiopulmonary process is evident. No adverse interval changes. /[place]
[2025-02-15 23:05] VITALS: BP 127/77; PULSE 75; RESP 18; TEMP 98.2; O2SAT 99
--- NOTE | 2025-02-16 06:46 | EKG ---
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
== END 2025-02-15 23:24 | disposition home or self-care (01) ==
LOC: EDH 21:19
DX: I10 Essential (primary) hypertension (principal); R51.9 Headache, unspecified; R22.41 Localized swelling, mass and lump, right lower limb; R22.42 Localized swelling, mass and lump, left lower limb; R04.0 Epistaxis; F20.9 Schizophrenia, unspecified; F31.9 Bipolar disorder, unspecified; F41.9 Anxiety disorder, unspecified; Z86.73 Personal history of transient ischemic attack (TIA), and cerebral infarction without residual deficits; Z90.710 Acquired absence of both cervix and uterus; Z87.442 Personal history of urinary calculi
CPT/HCPCS: 99285; 71045; 84484; 80048; 85025; 36415; 96372 ×2; 93005; J1885; J0360